=== PATIENT | female | born 1995 | race Caucasian/White ===

== ENCOUNTER → 2020-09-19 | Outpatient (CLI) | payer OTHER ==
--- NOTE | 2020-09-19 14:51 | CT ---
EXAMINATION TYPE: CT abdomen pelvis w con DATE OF EXAM: 09/19/2020 COMPARISON: NONE HISTORY: 24-year-old female N83.202, Ovarian Cyst TECHNIQUE: Contiguous axial scanning of the abdomen and pelvis following administration of 100 ml Iso nancy 300 IV contrast. Delayed images through the kidneys and coronal/sagittal reconstructions perform ed. CT DLP: 1784.4 mGycm Automated exposure control for dose reduction was used. FINDINGS: Heart limits of normal in size without pericardial effusion. Lung bases clear without pleural effusio n. Liver enlarged at 20.7 cm. There may be mild fatty infiltration. Portal venous system is patent. No b iliary ductal dilatation. Gallbladder, adrenal glands, kidneys, and pancreas within normal limits. Spleen upper limits of normal in size at 13.3 cm. Scattered nonenlarged and borderline sized mesenteric lymph nodes measuring up to 6 mm, probably reac tive. No dilated small bowel, free fluid, or free air. Normal appendix. Mild scattered stool. Oral contrast has just entered the ascending colon. Bladder partially urine distended. Uterus anteverted. Both ovaries are visualized with follicular ligia nge. No abnormal fluid collection in the pelvis or pelvic lymphadenopathy. Bone: No osseous destructive process. IMPRESSION: 1. FOLLICULAR CHANGE IN BOTH OVARIES. BOTH OVARIES APPEAR RELATIVELY SYMMETRIC WITHOUT ANY DOMINANT S USPICIOUS LESION IDENTIFIED. CONSIDER FOLLOW-UP PELVIC ULTRASOUND IF PERSISTENT CONCERN. 2. HEPATOMEGALY 20.7 CM. THERE MAY BE UNDERLYING MILD HEPATIC STEATOSIS.
== END | disposition home or self-care (01) ==
LOC: RADCTMAIN 10:38
PROVIDERS: ATTEND Family Medicine
DX: N83.209 Unspecified ovarian cyst, unspecified side (principal); R16.0 Hepatomegaly, not elsewhere classified
CPT/HCPCS: 74177; Q9967

== ENCOUNTER → 2020-12-30 | Outpatient (CLI) | payer OTHER ==
[2020-12-30 11:45] LABS: Basophils # (A) 0.1 k/uL (0-0.2); Basophils % (A) 0 %; Eosinophils # (A) 0.2 k/uL (0-0.7); Eosinophils % (A) 1 %; HCT 37.8 % (34.0-46.0); HGB 11.8 gm/dL (11.4-16.0); Lymphocytes # (A) 2.3 k/uL (1.0-4.8); Lymphocytes % (A) 20 %; MCH 22.8 pg (25.0-35.0); MCHC 31.1 g/dL (31.0-37.0); MCV 73.3 fL (80.0-100.0); Mean Platelet Volume 7.1; Microcytosis Slight; Monocytes # (A) 0.5 k/uL (0-1.0); Monocytes % (A) 5 %; Neutrophils # (A) 8.3 k/uL (1.3-7.7); Neutrophils % (A) 72 %; Platelet Count 278 k/uL (150-450); RBC 5.15 m/uL (3.80-5.40); RDW 14.2 % (11.5-15.5); WBC 11.4 k/uL (3.8-10.6)
== END | disposition home or self-care (01) ==
LOC: LABPAT 10:13
PROVIDERS: ATTEND Obstetrics & Gynecology
DX: Z01.812 Encounter for preprocedural laboratory examination (principal); N84.0 Polyp of corpus uteri
CPT/HCPCS: 85025

== ENCOUNTER 2021-01-06 09:43 | Day surgery (SDC) | payer OTHER ==
[2021-01-02 11:58] VITALS: BMI 41.5
[~2021-01-06 09:43] MED LIST: DEXAMETHASONE SOD PHOSPHATE 4 MG/ML 1 ML VIAL IV ONE; LACTATED RINGERS 1,000 ML IV SCH; ONDANSETRON 4 MG/2 ML VIAL IVP ONE; Pre Op ABX Message 1 EACH MISC MISCELLANE ONE
[2021-01-06] MEDS ORDERED: MIDAZOLAM 2 MG/2 ML VIAL IVP ONE (11:35)
[2021-01-06] MEDS ORDERED: LIDOCAINE 1% INJ 10MG/ML (20 ML MDV) ONE (11:43)
[2021-01-06] MEDS ORDERED: fentaNYL (PF) 50 MCG/ML 2 ML AMP ONE (11:43)
[2021-01-06] MEDS ORDERED: KETOROLAC 15 MG/ML 1 ML VIAL ONE (11:43)
[2021-01-06] MEDS ORDERED: PROPOFOL 10 MG/ML 20 ML VIAL IV ONE (11:43)
[2021-01-06] MEDS ORDERED: SILVER NITRATE APPLICATOR 1 EACH STICK..EA. TOPICAL ONE (12:02)
--- NOTE | 2021-01-06 12:12 | P.OP ---
Date of Procedure: 01/06/21 Preoperative Diagnosis: Sonographic evidence of endometrial polyp Postoperative Diagnosis: Essentially normal-appearing endometrial cavity, no obvious evidence of large polyps. Procedure(s) Performed: Hysteroscopy, dilatation and curettage of the uterine cavity Anesthesia: FLORIN Surgeon: Genoveva Claire Estimated Blood Loss (ml): 10 IV fluids (ml): 300 Urine output (ml): 140 Pathology: other (Endometrial curettings) Condition: stable Disposition: PACU Operative Findings: Essentially normal-appearing uterine cavity. Possible small polypoid tissue, no obvious fibroids. Description of Procedure: Patient is brought to the operating suite where a general anesthetic is administered without difficulty. She's placed in the dorsal lithotomy position. The cervix, vagina, perineal bodies are all prepped and draped in usual sterile fashion. The appropriate timeout is performed to assure proper patient and procedural identification. Urine hCG is negative. Antibiotics are not deemed necessary. Bladder is drained for approximately 140 mL of clear yellow urine. Examination under anesthesia is unremarkable. Weighted speculum was placed into the vagina and the anterior lip of the cervix is grasped with a double-tooth tenaculum. Uterus sounds to a depth of 8 cm in the anteverted position. Cervix is then gently and systematically dilated using Hanks dilators. Cavity is diffuse with sterile saline. Inspection of the cavity reveals a small amount of what appears to be proliferative-type tissue, possibly a small polyp. No large polyps or fibroids, defects or septa are appreciated. Hysteroscope was removed. A medium sharp curette is used and the cavity is thoroughly and gently curettaged. A small to moderate amount of tissue is obtained. When completed, the hysteroscope is reintroduced and the cavity appears to be devoid of any remaining tissue, blood clots or debris. Cervix is clean and dry upon completion of procedure. All sponge needle and enhancement counts are correct. Patient is brought back to the recovery room in very good condition with vital signs stable including blood pressure 140/94, pulse 80, 99% O2 saturation. Toradol is given prior to leaving the operative suite. She will follow-up with me in the office in 2 weeks.
[2021-01-06 12:15] VITALS: TEMP 98.5
[2021-01-06] MEDS: HYDROmorphone 0.5 MG/0.5 ML SYRINGE IVP PRN ×2 (12:26→12:41)
[2021-01-06 13:37] VITALS: RESP 20
[2021-01-06 14:26] VITALS: BP 133/88; PULSE 80
== END 2021-01-06 14:31 | disposition home or self-care (01) ==
LOC: OR 09:43
PROVIDERS: ATTEND Obstetrics & Gynecology
DX: N84.0 Polyp of corpus uteri (principal); Z98.890 Other specified postprocedural states; Z79.899 Other long term (current) drug therapy; Z84.1 Family history of disorders of kidney and ureter; J45.909 Unspecified asthma, uncomplicated; K21.9 Gastro-esophageal reflux disease without esophagitis; F17.200 Nicotine dependence, unspecified, uncomplicated; Z86.2 Personal history of diseases of the blood and blood-forming organs and certain disorders involving the immune mechanism
CPT/HCPCS: 81025; 58558; J2250; J1100; J2405; J2001; J3010; J1885; J2704; J1170; 88305

== ENCOUNTER 2021-12-09 06:47 | Day surgery (SDC) | payer OTHER ==
--- NOTE | 2021-12-04 10:21 | HP ---
HISTORY AND PHYSICAL DATE OF SURGERY: On December 09. HISTORY OF PRESENT ILLNESS: This is a 26-year-old female, 0, who presents requesting tubal sterilization. The patient is aware that this is considered a nonreversible procedure. She is aware of all of the other options for contraception, which she is declining. She adamantly wants no children, ever. PAST MEDICAL HISTORY: Significant for anemia, irregular cycles, ovarian cyst. PAST SURGICAL HISTORY: Significant for D and C, hysteroscopy in 2020, wisdom teeth extracted in 2015. CURRENT MEDICATIONS: control pill daily. ALLERGIES: None known. FAMILY HISTORY: Significant for kidney disease in her grandmother. SOCIAL HISTORY: The patient denies alcohol or drug use. She works locally at the [employer]. She enjoys social alcohol. She is single. PHYSICAL EXAMINATION: VITAL SIGNS: The patient is 5 feet 1 inches, 221 pounds, blood pressure 130/84. HEENT: Reveals normal oral mucosa, good dentition, no thyromegaly, no cervical lymphadenopathy. CHEST: Clear to auscultation in all yepez anteriorly and posteriorly. CARDIAC: Reveals regular rate and rhythm with no murmur, click, or rub. BREASTS: Bilaterally symmetric to inspection, no skin dimpling, nipple discharge, or axillary adenopathy. ABDOMEN: Soft, nontender, normal bowel sounds, no organosplenomegaly. EXTREMITIES: Reveal no edema, good peripheral pulses, normal range of motion. PELVIC: External genitalia is well estrogenized. Cervix is nulliparous. Pap smear is up-to-date and normal. Uterus is small, mobile, nontender, in the midline. Adnexa are negative bilaterally. IMPRESSION: Requesting permanent tubal sterilization, aware of the prominent nature of this procedure as well as the potential failure rate. PLAN: We will proceed with laparoscopic tubal ligation with Filshie clips. Risks, benefits, and alternatives are again very thoroughly detailed. Risks of bleeding, infection, perforation, or damage to bowel, bladder, ureters, any pelvic or abdominal organ. Risk of aspiration, nerve damage, and even all reviewed. All questions answered. MMODL / IJN: [id number] /
[2021-12-08 09:58] VITALS: BMI 41.5
[~2021-12-09 06:47] MED LIST changes: +LIDOCAINE 1% (10MG/ML) FOR IV START INTRADERMA PRN
[2021-12-09 07:12] VITALS: TEMP 96.9
[2021-12-09] MEDS ORDERED: fentaNYL (PF) 50 MCG/ML 2 ML AMP ONE (07:45)
[2021-12-09] MEDS ORDERED: GLYCOPYRROLATE 0.2 MG/ML 2 ML VIAL ONE (07:45)
[2021-12-09] MEDS ORDERED: PROPOFOL 10 MG/ML 20 ML VIAL IV ONE (07:45)
[2021-12-09] MEDS ORDERED: MIDAZOLAM 2 MG/2 ML VIAL ONE (07:45)
[2021-12-09] MEDS ORDERED: LIDOCAINE 2% INJ 20 MG/ML (2 ML VIAL) ONE (07:45)
[2021-12-09] MEDS ORDERED: SUCCINYLCHOLINE CHLORIDE 200 MG/10 ML VIAL IV ONE (07:45)
[2021-12-09] MEDS ORDERED: KETOROLAC 15 MG/ML 1 ML VIAL ONE (07:45)
[2021-12-09] MEDS ORDERED: NEOSTIGMINE 1 MG/ML 10 ML VIAL ONE (07:45)
[2021-12-09] MEDS ORDERED: ROCURONIUM 10 MG/ML (5 ML VIAL) IV ONE (07:45)
[2021-12-09] MEDS ORDERED: BUPIVACAINE (PF) 0.25% 30 ML VIAL SQ ONE ×3 (08:01)
--- NOTE | 2021-12-09 08:38 | P.OP ---
Date of Procedure: 12/09/21 Preoperative Diagnosis: Undesired fertility Postoperative Diagnosis: Essentially normal-appearing female pelvis Procedure(s) Performed: Laparoscopic tubal ligation with Filshie clips Anesthesia: FLORIN Surgeon: Genoveva Claire Estimated Blood Loss (ml): 10 IV fluids (ml): 500 Urine output (ml): 50 Pathology: none sent Condition: stable Operative Findings: Normal-appearing pelvis, no evidence of endometriosis or adhesions. Description of Procedure: Patient is brought to the operating suite where a general anesthetic is administered without difficulty. She's placed in the dorsal lithotomy position. The cervix, vagina, abdomen, perineum are all prepped and draped in usual sterile fashion. The appropriate timeout is performed to assure proper patient and procedural identification, urine hCG is negative. Examination under an esthesia reveals a small anteverted uterus. Bladder is drained for approximately 50 mL of clear yellow urine. Speculum was placed into the vagina. Anterior lip of the cervix is grasped with a long Allis clamp. A small acorn cannula is placed on the cervix and attached to the Allis clamp. Speculum is removed. Attention is now drawn to the abdominal cavity. A small infraumbilical incision is made and the varies needle is placed, placement is checked with hanging drop technique. Abdomen is insufflated under low filling pressures of approximately 8-10 mmHg for a total of 3 L of CO2 gas. Veress needle was removed. Trocar is then placed and placement is noted to be atraumatic. Patient is now placed in Trendelenburg. A second incision is made suprapubically in the second trocar placed under direct visualization. The right fallopian tube is visualized in its entirety to the fimbriated end. A Filshie clip is placed in the isthmic portion of the tube with care to traverse the entire diameter of the tube into the mesal salpinx. The same procedure is carried out contralaterally, again the entire tubal length is verified, clip in the isthmic portion all the way through to the mesal salpinx. Hemostasis is excellent. Ovaries appear normal. The liver edge, gallbladder, bowel, bilateral pelvic sidewalls, anterior and posterior cul-de-sacs are all noted to be within normal limits. CO2 gas was allowed to diffuse. Trochars are removed under direct visualization and the fascial defects are clean and dry. 4-0 undyed Monocryl is used for final skin closure. Steri-Strips and Mastisol are applied to the wounds after they are injected with quarter percent Marcaine without epinephrine to aid in postoperative analgesia. Toradol is given to the patient. Instrumentation is removed from the vagina, cervix is clean and dry. All sponge needle and enhancement counts are correct. Patient is brought back to the recovery room in excellent condition with stable vital signs including a pulse of 71, blood pressure 143/72, 98% O2 saturation. She will follow-up with me in the office in 2 weeks.
[2021-12-09] MEDS: HYDROmorphone 0.5 MG/0.5 ML SYRINGE IVP PRN ×4 (08:49→09:18)
[2021-12-09] MEDS ORDERED: ONDANSETRON 4 MG/2 ML VIAL IVP ONE (08:57)
[2021-12-09] MEDS ORDERED: LACTATED RINGERS 1,000 ML IV ONE (09:18)
[2021-12-09 09:49] VITALS: RESP 14
[2021-12-09 10:16] VITALS: BP 123/86; PULSE 89
[2021-12-09] MEDS ORDERED: ACETAMINOPHEN TAB 325 MG TAB PO ONE (10:31)
[2021-12-09] MEDS ORDERED: ACETAMINOPHEN TAB 325 MG TAB ONE (10:31)
== END 2021-12-09 11:03 | disposition home or self-care (01) ==
LOC: OR 06:47
PROVIDERS: ATTEND Obstetrics & Gynecology
DX: Z30.2 Encounter for sterilization (principal); D64.9 Anemia, unspecified; Z87.42 Personal history of other diseases of the female genital tract
CPT/HCPCS: 58671; 81025; J2250; J0330; J1100; J2710; J2405; J3010; J1885; J2704; J1170; J2001